=== PATIENT | female | born 2000 | race Two or more races ===

== ENCOUNTER 2022-01-19 21:59 | Inpatient (IN) | payer OTHER ==
[~2022-01-19] VITALS: Ht 167.6 cm; Wt 87.1 kg
[2022-01-19] MEDS ORDERED: PRENATAL TABLE1 EAC1 PO (22:04)
== END 2022-01-25 15:41 | disposition home or self-care (01) | DRG 831 ==
LOC: OB/GYN 21:59 → LDR 21:59 → OB/GYN 01-22 12:52
PROVIDERS: ADMIT Obstetrics & Gynecology Obstetrics; ATTEND Obstetrics & Gynecology Obstetrics
PROC: 8E0ZXY6 Isolation (ICD-10-PCS; principal; 2022-01-19)
PROC: 4A1HXCZ Monitoring of Products of Conception, Cardiac Rate, External Approach (ICD-10-PCS; 2022-01-19)
DX: O98.513 Other viral diseases complicating pregnancy, third trimester (principal); U07.1 COVID-19; O23.33 Infections of other parts of urinary tract in pregnancy, third trimester; N39.0 Urinary tract infection, site not specified; Z3A.32 32 weeks gestation of pregnancy; B95.1 Streptococcus, group B, as the cause of diseases classified elsewhere

== ENCOUNTER 2022-03-16 08:55 | Inpatient (IN) | payer OTHER ==
[~2022-03-16] VITALS: Ht 167.6 cm; Wt 90.7 kg
[~2022-03-16 08:55] MED LIST: PRENATAL TABLE1 EAC1 PO
== END 2022-03-20 17:50 | disposition home or self-care (01) | DRG 807 ==
LOC: LDR 08:55 → OB/GYN 08:55
PROVIDERS: ADMIT Obstetrics & Gynecology Obstetrics; ATTEND Obstetrics & Gynecology Obstetrics
PROC: 4A1HXCZ Monitoring of Products of Conception, Cardiac Rate, External Approach (ICD-10-PCS; 2022-03-16)
PROC: 10E0XZZ Delivery of Products of Conception, External Approach (ICD-10-PCS; principal; 2022-03-17)
DX: O99.820 Streptococcus B carrier state complicating pregnancy (principal); Z3A.40 40 weeks gestation of pregnancy; Z37.0 Single live birth; Z20.822 Contact with and (suspected) exposure to COVID-19